=== PATIENT | male | born 2000 | race Caucasian/White ===

== ENCOUNTER 2018-02-09 22:29 | Emergency (ER) | payer BC ==
[~2018-02-09] VITALS: Ht 162.6 cm; Wt 73.5 kg
[2018-02-09 23:20] LABS: HEMATOCRIT 44.8 % (38.0-50.0); HEMOGLOBIN 15.7 G/DL (12.5-16.6); MCH 31.3 PG (29.0-34.0); MCV 89.2 FL (86-99); PLATELET COUNT 337 K/uL (156-360); RBC DIS.WIDTH-CV 12.6 % (11.8-14.6); RBC DIS.WIDTH-SD 41.1 % (39-53); RED BLOOD COUNT 5.02 M/uL (4.00-5.50); WHITE BLOOD COUNT 10.2 K/uL (4.1-10.2)
[2018-02-09 23:30] LABS: CHLORIDE 107 mEq/L (99-109); POTASSIUM 4.3 mEq/L (3.7-5.4); SODIUM 143 mEq/L (136-147)
[2018-02-09 23:32] LABS: GLUCOSE 119 mg/dL (70-99)
[2018-02-09 23:35] LABS: CREATININE 1.1 mg/dL (0.6-1.3); GFR ESTIMATE (CALCULATED) > 59 mL/min/ (58.99-99999)
[2018-02-09 23:36] LABS: UREA NITROGEN (BUN) 17 mg/dL (9-23)
[2018-02-10 01:36] VITALS: BP 125/67
== END 2018-02-10 01:36 | disposition home or self-care (01) ==
LOC: EME 22:29
PROVIDERS: Emergency Medicine
DX: M54.9 Dorsalgia, unspecified (principal); G89.29 Other chronic pain; F31.9 Bipolar disorder, unspecified; F32.9 Major depressive disorder, single episode, unspecified; F90.9 Attention-deficit hyperactivity disorder, unspecified type; F41.9 Anxiety disorder, unspecified
CPT/HCPCS: 80048; 80178; 85027; 99281; 99284